=== PATIENT | female | born 1960 | race Caucasian/White ===

== ENCOUNTER 2017-04-07 19:58 | Emergency (ER) | payer MEDICARE, OTHER ==
[~2017-04-07] VITALS: Ht 154.9 cm; Wt 65.3 kg
--- OUTSIDE RECORDS SUMMARY | ~2017-04-07 | XMS ---
Demographics + + + | Address | [address] | | | [place] [address] | + + + | Preferred Language | Unknown | + + + | Marital Status | Unknown | + + + | Temple Affiliation | Unknown | + + + | Race | Unknown | + + + | Ethnic Group | Unknown | + + + Author + + + | Author | [facility] | + + + | Organization | [facility] | + + + | Address | [address] | | | [place] [address] | + + + | Phone | | + + + Care Team Providers + + + + | Care Fireman Helper Name | Role | Phone | + + + + Unavailable | Unavailable | + + + + PROBLEMS + + + + + + + + | Type | Condition | ICD9-CM | [id number] | Onset | Condition | SNOMED | | | | Code | Code | Dates | Status | Code | + + + + + + + + | Problem | HTN | | I10 | | Active | 34227868 | | | (hypertens | | | | | | | | ion) | | | | | | + + + + + + + + | Problem | Hypertrigl | | E78.1 | | Active | 050156405 | | | yceridemia | | | | | | + + + + + + + + | Problem | Hyperchole | | E78.0 | | Active | 60214086 | | | sterolemia | | | | | | + + + + + + + + | Problem | Interstiti | N30.10 | | | Active | 262622829 | | | al | | | | | | | | cystitis | | | | | | + + + + + + + + | Problem | ASCVD | I25.10 | | | Active | 48948628 | | | (arteriosc | | | | | | | | lerotic | | | | | | | | cardiovasc | | | | | | | | ular | | | | | | | | disease) | | | | | | + + + + + + + + | Problem | NAFLD | K76.0 | | | Active | 561350545 | | | (nonalcoho | | | | | | | | lic fatty | | | | | | | | liver | | | | | | | | disease) | | | | | | + + + + + + + + | Problem | Metabolic | | E88.81 | | Active | 909839693 | | | syndrome | | | | | | + + + + + + + + | Problem | Herpes | B00.9 | | | Active | 07799082 | | | simplex | | | | | | + + + + + + + + | Problem | Depression | | F32.9 | | Active | 906367233 | + + + + + + + + | Assessment | Neuropathi | M79.2 | | 15 November, | Active | 307090355 | | | c pain | | | 2017 | | | + + + + + + + + | Problem | Allergic | 477.8 | | | Active | 07911763 | | | rhinitis | | | | | | | | due to | | | | | | | | allergen | | | | | | + + + + + + + + | Problem | Bronchitis | 490 | | | Active | 88312105 | | | NOS | | | | | | + + + + + + + + | Assessment | Shingles | B02.9 | | 15 November, | Active | 3705811 | | | | | | 2016 | | | + + + + + + + + | Problem | Dyslipidem | E78.5 | | | Active | 036779604 | | | ia | | | | | | + + + + + + + + | Problem | Adverse | T88.7XXA | | | Active | 78874500 | | | drug | | | | | | | | reaction | | | | | | + + + + + + + + | Problem | CVA | I63.9 | | | Active | 418873033 | | | (cerebral | | | | | | | | vascular | | | | | | | | accident) | | | | | | + + + + + + + + ALLERGIES + + + + +--------+ | Substance | Reaction | Event Type | Date | Status | + + + + +--------+ | Azithromycin | Unknown | Drug Allergy | November, | Active | + + + + +--------+ | Penicillin | Unknown | Drug Allergy | November, | Active | + + + + +--------+ | Amitriptyline | Unknown | Drug Allergy | November, | Active | | HCl | | | | | + + + + +--------+ | Hydrocodone-Carlos | Unknown | Drug Allergy | November, | Active | | taminophen | | | | | + + + + +--------+ | Tramadol HCl | Unknown | Drug Allergy | November, | Active | + + + + +--------+ | Sulfa | Unknown | Drug Allergy | November, | Active | + + + + +--------+ | Codeine | Unknown | Drug Allergy | November, | Active | + + + + +--------+ | Amoxicillin | Unknown | Drug Allergy | November, | Active | + + + + +--------+ | Wellbutrin | Hallucinations | Drug Allergy | November, | Active | + + + + +--------+ | Percocet | Unknown | Drug Allergy | November, | Active | + + + + +--------+ | Paxil | Unknown | Drug Allergy | November, | Active | + + + + +--------+ | Morphine | Unknown | Drug Allergy | November, | Active | | Sulfate | | | | | + + + + +--------+ | Excedrin PM | Unknown | Drug Allergy | November, | Active | + + + + +--------+ | Ethezyme 650 | Unknown | Drug Allergy | November, | Active | + + + + +--------+ | Demerol | Unknown | Drug Allergy | November, | Active | + + + + +--------+ | Darvon | Unknown | Drug Allergy | November, | Active | + + + + +--------+ | Darvocet-N 100 | Unknown | Drug Allergy | November, | Active | + + + + +--------+ | Cymbalta | hives, tongue | Drug Allergy | November, | Active | | | swells | | | | + + + + +--------+ SOCIAL HISTORY No smoking Hx information available PLAN OF CARE VITAL SIGNS + + + + | Height | 60 in | 2016-11-15 | + + + + | Weight | 148.2 lbs | 2016-11-15 | + + + + | BMI | 28.94 kg/m2 | 2016-11-15 | + + + + | Temperature | 97.8 degrees Fahrenheit | 2016-11-15 | + + + + | Heart Rate | 79 /min | 2016-11-15 | + + + + | Blood pressure systolic | 128 mm Hg | 2016-11-15 | + + + + | Blood pressure diastolic | 74 mm Hg | 2016-11-15 | + + + + MEDICATIONS + + + + + + + +--------+ | Medicati | Instruct | Dosage | Frequenc | Start | End Date | Duration | Status | | on | ions | | y | Date | | | | + + + + + + + +--------+ | Sertrali | Orally | 1 tablet | 24h | Jun, | | 30 | Active | | ne HCl | Once a | | | 2016 | | day(s) | | | 25 MG | day | | | | | | | + + + + + + + +--------+ | Omeprazo | Orally | 1 | 24h | | | | Active | | le 20 MG | Once a | capsule | | | | | | | | day | | | | | | | + + + + + + + +--------+ | Gabapent | Orally | 1 | 12h | 07 May, | | 10 | Active | | in 300 | BID | capsule | | 2017 | | day(s) | | | MG | | | | | | | | + + + + + + + +--------+ | Fenofibr | Orally | 1 tablet | 24h | | | | Active | | ate 54 | Once a | with a | | | | | | | MG | day | meal | | | | | | + + + + + + + +--------+ | Laxative | | | | | | | Active | | /Stool | | | | | | | | | Softener | | | | | | | | | 30-100 | | | | | | | | | MG | | | | | | | | + + + + + + + +--------+ | Multi | | | | | | | Active | | For Her | | | | | | | | | 50+ | | | | | | | | + + + + + + + +--------+ | Crestor | Orally | 1 tablet | 24h | Aug, | | 90 days | Active | | 20 mg | Once a | | | 2015 | | | | | | day | | | | | | | + + + + + + + +--------+ RESULTS No Results PROCEDURES + + + + + | Procedure | Date Ordered | Related Diagnosis | Body Site | + + + + + | Office Visit, Est | November 15, 2016 | | | | Pt., Level 3 | | | | + + + + + | [facility] MED/CURRENT | November 15, 2016 | | | | MED MERGE | | | | + + + + + | DOC MEDS VERIFIED | November 15, 2016 | | | | W/PT OR RE | | | | + + + + + IMMUNIZATIONS No Known Immunizations"
--- OUTSIDE RECORDS SUMMARY | ~2017-04-07 | XMS ---
Demographics + + + | Address | [address] | | | [place] [address] | + + + | Preferred Language | Unknown | + + + | Marital Status | Unknown | + + + | Voodoo Affiliation | Unknown | + + + | Race | Unknown | + + + | Ethnic Group | Unknown | + + + Author + + + | Author | [facility] | + + + | Organization | [facility] | + + + | Address | [address] | | | [place] [address] | + + + | Phone | | + + + Care Team Providers + + + + | Care Purchasing Coordinator Name | Role | Phone | + + + + Unavailable | Unavailable | + + + + PROBLEMS +---------+ + + +--------+ + + | Type | Condition | ICD9-CM | [id number] | Onset | Condition | SNOMED | | | | Code | Code | Dates | Status | Code | +---------+ + + +--------+ + + | Problem | Hypertrigl | | E78.1 | | Active | 796076602 | | | yceridemia | | | | | | +---------+ + + +--------+ + + | Problem | NAFLD | K76.0 | | | Active | 783347479 | | | (nonalcoho | | | | | | | | lic fatty | | | | | | | | liver | | | | | | | | disease) | | | | | | +---------+ + + +--------+ + + | Problem | Metabolic | | E88.81 | | Active | 945684064 | | | syndrome | | | | | | +---------+ + + +--------+ + + | Problem | Shingles | B02.9 | | | Active | 2400560 | +---------+ + + +--------+ + + | Problem | Shingles | B02.23 | | | Active | 57258507 | | | (herpes | | | | | | | | zoster) | | | | | | | | polyneurop | | | | | | | | athy | | | | | | +---------+ + + +--------+ + + | Problem | Herpes | B00.9 | | | Active | 39053593 | | | simplex | | | | | | +---------+ + + +--------+ + + | Problem | Depression | | F32.9 | | Active | 024955194 | +---------+ + + +--------+ + + | Problem | Interstiti | N30.10 | | | Active | 486770343 | | | al | | | | | | | | cystitis | | | | | | +---------+ + + +--------+ + + | Problem | ASCVD | I25.10 | | | Active | 56051611 | | | (arteriosc | | | | | | | | lerotic | | | | | | | | cardiovasc | | | | | | | | ular | | | | | | | | disease) | | | | | | +---------+ + + +--------+ + + | Problem | Adverse | T88.7XXA | | | Active | 99750692 | | | drug | | | | | | | | reaction | | | | | | +---------+ + + +--------+ + + | Problem | Dyslipidem | E78.5 | | | Active | 318962371 | | | ia | | | | | | +---------+ + + +--------+ + + | Problem | CVA | I63.9 | | | Active | 158597149 | | | (cerebral | | | | | | | | vascular | | | | | | | | accident) | | | | | | +---------+ + + +--------+ + + | Problem | Allergic | 477.8 | | | Active | 23075431 | | | rhinitis | | | | | | | | due to | | | | | | | | allergen | | | | | | +---------+ + + +--------+ + + | Problem | HTN | | I10 | | Active | 44936227 | | | (hypertens | | | | | | | | ion) | | | | | | +---------+ + + +--------+ + + | Problem | Bronchitis | 490 | | | Active | 67173825 | | | NOS | | | | | | +---------+ + + +--------+ + + | Problem | Hyperchole | | E78.0 | | Active | 31701067 | | | sterolemia | | | | | | +---------+ + + +--------+ + + ALLERGIES + + + + [...] smoking Hx information available PLAN OF CARE + +---------+ | Activity | Details | + +---------+ +---+ | | +---+ + + + | Follow Up | 2 Months Reason:null | + + + VITAL SIGNS + + + + | Height | 60 in | 2016-12-01 | + + + + | Weight | 146 lbs | 2016-12-01 | + + + + | BMI | 28.51 kg/m2 | 2016-12-01 | + + + + | Temperature | 98.0 degrees Fahrenheit | 2016-12-01 | + + + + | Heart Rate | 77 /min | 2016-12-01 | + + + + | Blood pressure systolic | 107 mm Hg | 2016-12-01 | + + + + | Blood pressure diastolic | 62 mm Hg | 2016-12-01 | + + + + MEDICATIONS + + + + + + + +--------+ | Medicati | Instruct | Dosage | Frequenc | Start | End Date | Duration | Status | | on | ions | | y | Date | | | | + + + + + + + +--------+ | Ibuprofe | Orally | 1 tablet | | 01 December, | Dec, | 30 | Active | | n 800 MG | one time | | | 2016 | 2016 | day(s) | | | | a day | | | | | | | + + + + + + + +--------+ | Sertrali | Orally | 1 tablet | 24h | Jun, | | 90 days | Active | | ne HCl | Once a | | | 2015 | | | | | 25 MG | day | | | | | | | + + + + + + + +--------+ | Gabapent | Orally | 1 | 12h | 15 November, | | 10 | Active | | in 300 | BID | capsule | | 2016 | | day(s) | | | MG [...] 1 tablet | 24h | | | 90 days | Active | | ate 54 | [...] + + | Office Visit, Est | December 01, 2016 | | | | Pt., Level 4 | | | | + + + + + | [facility] MED/CURRENT | December 01, 2016 | | | | MED MERGE | | | | + + + + + IMMUNIZATIONS No Known Immunizations"
--- OUTSIDE RECORDS SUMMARY | ~2017-04-07 | XMS ---
Demographics + + + | Address | [address] | | | [place] [address] | + + + | Preferred Language | Unknown | + + + | Marital Status | Unknown | + + + | Baptism Affiliation | Unknown | + + + | Race | Unknown | + + + | Ethnic Group | Unknown | + + + Author + + + | Author | [facility] | + + + | Organization | [facility] | + + + | Address | [address] | | | [place] [address] | + + + | Phone | | + + + Care Team Providers + + + + | Care Vacuum Drum Drier Operator Name | Role | Phone | + + + + Unavailable | Unavailable | + + + + PROBLEMS +---------+ + + +--------+ + + | Type | Condition | ICD9-CM | [id number] | Onset | Condition | SNOMED | | | | Code | Code | Dates | Status | Code | +---------+ + + +--------+ + + | Problem | Hypertrigl | | E78.1 | | Active | 995548166 | | | yceridemia | | | | | | +---------+ + + +--------+ + + | Problem | NAFLD | K76.0 | | | Active | 789160436 | | | (nonalcoho | | | | | | | | lic fatty | | | | | | | | liver | | | | | | | | disease) | | | | | | +---------+ + + +--------+ + + | Problem | Metabolic | | E88.81 | | Active | 973682212 | | | syndrome | | | | | | +---------+ + + +--------+ + + | Problem | Shingles | B02.9 | | | Active | 8067715 | +---------+ + + +--------+ + + | Problem | Shingles | B02.23 | | | Active | 70824658 | | | (herpes | | | | | | | | zoster) | | | | | | | | polyneurop | | | | | | | | athy | | | | | | +---------+ + + +--------+ + + | Problem | Herpes | B00.9 | | | Active | 15690008 | | | simplex | | | | | | +---------+ + + +--------+ + + | Problem | Depression | | F32.9 | | Active | 75058217 | +---------+ + + +--------+ + + | Problem | Interstiti | N30.10 | | | Active | 043934399 | | | al | | | | | | | | cystitis | | | | | | +---------+ + + +--------+ + + | Problem | ASCVD | I25.10 | | | Active | 38089768 | | | (arteriosc | | | | | | | | lerotic | | | | | | | | cardiovasc | | | | | | | | ular | | | | | | | | disease) | | | | | | +---------+ + + +--------+ + + | Problem | Elevated | R73.9 | | | Active | 75166494 | | | blood | | | | | | | | sugar | | | | | | +---------+ + + +--------+ + + | Problem | Adverse | T88.7XXA | | | Active | 75868427 | | | drug | | | | | | | | reaction | | | | | | +---------+ + + +--------+ + + | Problem | Dyslipidem | E78.5 | | | Active | 122753746 | | | ia | | | | | | +---------+ + + +--------+ + + | Problem | CVA | I63.9 | | | Active | 252904629 | | | (cerebral | | | | | | | | vascular | | | | | | | | accident) | | | | | | +---------+ + + +--------+ + + | Problem | Allergic | 477.8 | | | Active | 76352614 | | | rhinitis | | | | | | | | due to | | | | | | | | allergen | | | | | | +---------+ + + +--------+ + + | Problem | HTN | | I10 | | Active | 17110505 | | | (hypertens | | | | | | | | ion) | | | | | | +---------+ + + +--------+ + + | Problem | Bronchitis | 490 | | | Active | 18641941 | | | NOS | | | | | | +---------+ + + +--------+ + + | Problem | Hyperchole | | E78.0 | | Active | 24632184 | | | sterolemia | | | | | | +---------+ + + +--------+ + + ALLERGIES No Information SOCIAL HISTORY Never Assessed PLAN OF CARE VITAL SIGNS MEDICATIONS Unknown Medications RESULTS No Results PROCEDURES No Known procedures IMMUNIZATIONS No Known Immunizations MEDICAL (GENERAL) HISTORY + + +---------+ | Type | Description | Date | + + +---------+ | Medical History | stroke - 2002; (thrombotic, | | | | treated with Coumadin for | | | | 4 months, saw Neurologist | | | | at the time. Slight | | | | numbness and weakness right | | | | side (face, arm, leg) | | + + +---------+ | Medical History | high cholesterol | | + + +---------+ | Medical History | fatty liver (Non-alcoholic) | | + + +---------+ | Medical History | chronic depression | | + + +---------+ | Medical History | fibromyalgia | | + + +---------+ | Medical History | reflux | | + + +---------+ | Medical History | headaches | | + + +---------+ | Medical History | seasonal allergies | | + + +---------+ | Medical History | transfusion () - | | | | 1982 | | + + +---------+ | Surgical History | gall bladder | 2000 | + + +---------+ | Surgical History | appendectomy | 1992 | + + +---------+ | Surgical History | tubal ligation | 1984 | + + +---------+ | Surgical History | tonsillectomy | 1964 | + + +---------+ | Surgical History | colonoscopy | 2014 | + + +---------+ | Surgical History | Right Salpingectomy | 07/2015 | | | (Hydrosalpinx) | | + + +---------+ | Surgical History | angiogram | 12/2015 | + + +---------+ | Surgical History | Left falopian tube removed, | 05/2016 | | | palops | | + + +---------+ | Hospitalization History | see above | | + + +---------+ | Hospitalization History | heart, angiogram | | + + +---------+"
--- OUTSIDE RECORDS SUMMARY | ~2017-04-07 | XMS ---
Demographics + + + | Address | [address] | | | [place] [address] | + + + | Preferred Language | Unknown | + + + | Marital Status | Unknown | + + + | Oriental Orthodox Affiliation | Unknown | + + + | Race | Unknown | + + + | Ethnic Group | Unknown | + + + Author + + + | Author | [facility] | + + + | Organization | [facility] | + + + | Address | [address] | | | [place] [address] | + + + | Phone | | + + + Care Team Providers + + + + | Care Superintendent Drilling Name | Role | Phone | + + + + Unavailable | Unavailable | + + + + PROBLEMS +---------+ + + +--------+ + + | Type | Condition | ICD9-CM | [id number] | Onset | Condition | SNOMED | | | | Code | Code | Dates | Status | Code | +---------+ + + +--------+ + + | Problem | Hypertrigl | | E78.1 | | Active | 540738009 | | | yceridemia | | | | | | +---------+ + + +--------+ + + | Problem | NAFLD | K76.0 | | | Active | 590193602 | | | (nonalcoho | | | | | | | | lic fatty | | | | | | | | liver | | | | | | | | disease) | | | | | | +---------+ + + +--------+ + + | Problem | Metabolic | | E88.81 | | Active | 969695806 | | | syndrome | | | | | | +---------+ + + +--------+ + + | Problem | Shingles | B02.9 | | | Active | 9676697 | +---------+ + + +--------+ + + | Problem | Shingles | B02.23 | | | Active | 62064292 | | | (herpes | | | | | | | | zoster) | | | | | | | | polyneurop | | | | | | | | athy | | | | | | +---------+ + + +--------+ + + | Problem | Herpes | B00.9 | | | Active | 77873851 | | | simplex | | | | | | +---------+ + + +--------+ + + | Problem | Depression | | F32.9 | | Active | 704025945 | +---------+ + + +--------+ + + | Problem | Interstiti | N30.10 | | | Active | 960434262 | | | al | | | | | | | | cystitis | | | | | | +---------+ + + +--------+ + + | Problem | ASCVD | I25.10 | | | Active | 35942278 | | | (arteriosc | | | | | | | | lerotic | | | | | | | | cardiovasc | | | | | | | | ular | | | | | | | | disease) | | | | | | +---------+ + + +--------+ + + | Problem | Adverse | T88.7XXA | | | Active | 98812888 | | | drug | | | | | | | | reaction | | | | | | +---------+ + + +--------+ + + | Problem | Dyslipidem | E78.5 | | | Active | 190428756 | | | ia | | | | | | +---------+ + + +--------+ + + | Problem | CVA | I63.9 | | | Active | 627112478 | | | (cerebral | | | | | | | | vascular | | | | | | | | accident) | | | | | | +---------+ + + +--------+ + + | Problem | Allergic | 477.8 | | | Active | 39958079 | | | rhinitis | | | | | | | | due to | | | | | | | | allergen | | | | | | +---------+ + + +--------+ + + | Problem | HTN | | I10 | | Active | 82582614 | | | (hypertens | | | | | | | | ion) | | | | | | +---------+ + + +--------+ + + | Problem | Bronchitis | 490 | | | Active | 35949743 | | | NOS | | | | | | +---------+ + + +--------+ + + | Problem | Hyperchole | | E78.0 | | Active | 22237160 | | | sterolemia | | | | | | +---------+ + + +--------+ + + ALLERGIES Unknown Allergies SOCIAL HISTORY No smoking Hx information available PLAN OF CARE VITAL SIGNS MEDICATIONS Unknown Medications RESULTS No Results PROCEDURES No Known procedures IMMUNIZATIONS No Known Immunizations"
--- OUTSIDE RECORDS SUMMARY | ~2017-04-07 | XMS ---
Demographics + + + | Address | [address] | | | [place] [address] | + + + | Preferred Language | Unknown | + + + | Marital Status | Unknown | + + + | Baptist Affiliation | Unknown | + + + | Race | Unknown | + + + | Ethnic Group | Unknown | + + + Author + + + | Author | [facility] | + + + | Organization | [facility] | + + + | Address | [address] | | | [place] [address] | + + + | Phone | | + + + Care Team Providers + + + + | Care Aircraft Electrical Systems Specialist Name | Role | Phone | + + + + Unavailable | Unavailable | + + + + PROBLEMS +---------+ + + +--------+ + + | Type | Condition | ICD9-CM | [id number] | Onset | Condition | SNOMED | | | | Code | Code | Dates | Status | Code | +---------+ + + +--------+ + + | Problem | Hypertrigl | | E78.1 | | Active | [id number] | | | yceridemia | | | | | | +---------+ + + +--------+ + + | Problem | NAFLD | K76.0 | | | Active | 763968428 | | | (nonalcoho | | | | | | | | lic fatty | | | | | | | | liver | | | | | | | | disease) | | | | | | +---------+ + + +--------+ + + | Problem | Metabolic | | E88.81 | | Active | 122594723 | | | syndrome | | | | | | +---------+ + + +--------+ + + | Problem | Shingles | B02.9 | | | Active | 9490612 | +---------+ + + +--------+ + + | Problem | Shingles | B02.23 | | | Active | 02838706 | | | (herpes | | | | | | | | zoster) | | | | | | | | polyneurop | | | | | | | | athy | | | | | | +---------+ + + +--------+ + + | Problem | Herpes | B00.9 | | | Active | 81419439 | | | simplex | | | | | | +---------+ + + +--------+ + + | Problem | Depression | | F32.9 | | Active | 228430254 | +---------+ + + +--------+ + + | Problem | Interstiti | N30.10 | | | Active | 295008692 | | | al | | | | | | | | cystitis | | | | | | +---------+ + + +--------+ + + | Problem | ASCVD | I25.10 | | | Active | 95673342 | | | (arteriosc | | | | | | | | lerotic | | | | | | | | cardiovasc | | | | | | | | ular | | | | | | | | disease) | | | | | | +---------+ + + +--------+ + + | Problem | Elevated | R73.9 | | | Active | 79494455 | | | blood | | | | | | | | sugar | | | | | | +---------+ + + +--------+ + + | Problem | Adverse | T88.7XXA | | | Active | 54286852 | | | drug | | | | | | | | reaction | | | | | | +---------+ + + +--------+ + + | Problem | Dyslipidem | E78.5 | | | Active | 164080495 | | | ia | | | | | | +---------+ + + +--------+ + + | Problem | CVA | I63.9 | | | Active | 789627801 | | | (cerebral | | | | | | | | vascular | | | | | | | | accident) | | | | | | +---------+ + + +--------+ + + | Problem | Allergic | 477.8 | | | Active | 75159912 | | | rhinitis | | | | | | | | due to | | | | | | | | allergen | | | | | | +---------+ + + +--------+ + + | Problem | HTN | | I10 | | Active | 84783773 | | | (hypertens | | | | | | | | ion) | | | | | | +---------+ + + +--------+ + + | Problem | Bronchitis | 490 | | | Active | 82120743 | | | NOS | | | | | | +---------+ + + +--------+ + + | Problem | Hyperchole | | E78.0 | | Active | 74095752 | | | sterolemia | | | | | | +---------+ + + +--------+ + + ALLERGIES + + + + +--------+ | Substance | Reaction | Event Type | Date | Status | + + + + +--------+ | Azithromycin | Unknown | Drug Allergy | Jan, | Active | + + + + +--------+ | Penicillin | Unknown | Drug Allergy | Jan, | Active | + + + + +--------+ | Amitriptyline | Unknown | Drug Allergy | Jan, | Active | | HCl | | | | | + + + + +--------+ | Hydrocodone-Carlos | Unknown | Drug Allergy | Jan, | Active | | taminophen | | | | | + + + + +--------+ | Tramadol HCl | Unknown | Drug Allergy | Jan, | Active | + + + + +--------+ | Sulfa | Unknown | Drug Allergy | Jan, | Active | + + + + +--------+ | Codeine | Unknown | Drug Allergy | Jan, | Active | + + + + +--------+ | Amoxicillin | Unknown | Drug Allergy | Jan, | Active | + + + + +--------+ | Wellbutrin | Hallucinations | Drug Allergy | Jan, | Active | + + + + +--------+ | Percocet | Unknown | Drug Allergy | Jan, | Active | + + + + +--------+ | Paxil | Unknown | Drug Allergy | Jan, | Active | + + + + +--------+ | Morphine | Unknown | Drug Allergy | Jan, | Active | | Sulfate | | | | | + + + + +--------+ | Excedrin PM | Unknown | Drug Allergy | Jan, | Active | + + + + +--------+ | Ethalexyme 650 | Unknown | Drug Allergy | Jan, | Active | + + + + +--------+ | Demerol | Unknown | Drug Allergy | Jan, | Active | + + + + +--------+ | Darvon | Unknown | Drug Allergy | Jan, | Active | + + + + +--------+ | Darvocet-N 100 | Unknown | Drug Allergy | Jan, | Active | + + + + +--------+ | Cymbalta | hives, tongue | Drug Allergy | Jan, | Active | | | swells | | | | + + + + +--------+ SOCIAL HISTORY No smoking Hx information available PLAN OF CARE + +---------+ | Activity | Details | + +---------+ +---+ | | +---+ + + + | Follow Up | 3 Months Reason:null | + + + VITAL SIGNS + + + + | Height | 60 in | 2017-02-01 | + + + + | Weight | 151.3 lbs | 2017-02-01 | + + + + | BMI | 29.55 kg/m2 | 2017-02-01 | + + + + | Temperature | 98.2 degrees Fahrenheit | 2017-02-01 | + + + + | Heart Rate | 83 /min | 2017-02-01 | + + + + | Blood pressure systolic | 111 mm Hg | 2017-02-01 | + + + + | Blood pressure diastolic | 69 mm Hg | 2017-02-01 | + + + + MEDICATIONS + [...] a | | | 2016 | | | | | 25 MG | day | | | | | | | + + + + + + + +--------+ | Zoloft | Orally | 1 tablet | 24h | | | | Active | | 25 MG | Once a | | | | | | | | | day | | | | | | | + + + + + + + +--------+ | Gabapent | Orally | 1 | 12h | 07 November, | | 10 | Active | [...] | | | | Active | | 20 MG | Once a | | | | | | | | | day | | | | | | | + + + + + + + +--------+ | Ibuprofe | Orally | 1 tablet | 12h | | | | Active | | n 800 MG | Two | | | | | | | | | times a | | | | | | | | | day | | | | | | | + + + + + + + +--------+ | Toviaz 4 | Orally | 1 tablet | 24h | | | | Active | | MG | Once a | | | | | | | | | day | | | | | | | + + + + + + + +--------+ RESULTS + +--------+ + + | Name | Result | Date | Reference Range | + +--------+ + + | TSH | | 2017-02-01 | | + +--------+ + + | TSH | | | | + +--------+ + + | Lipid Panel | | 2017-02-01 | | + +--------+ + + | Cholesterol, Total | | | | + +--------+ + + | Triglycerides | | | | + +--------+ + + | HDL Cholesterol | | | | + +--------+ + + | VLDL Cholesterol | | | | | Dillon | | | | + +--------+ + + | LDL Cholesterol | | | | | Calc | | | | + +--------+ + + | Basic Metabolic | | 2017-02-01 | | | Panel (8) | | | | + +--------+ + + | Calcium, Serum | | | | + +--------+ + + | Glucose, Serum | | | | + +--------+ + + | BUN | | | | + +--------+ + + | Potassium, Serum | | | | + +--------+ + + | Sodium, Serum | | | | + +--------+ + + | Chloride, Serum | | | | + +--------+ + + | Creatinine, Serum | | | | + +--------+ + + | Carbon Dioxide, | | | | | Total | | | | + +--------+ + + | BUN/Creatinine | | | | | Ratio | | | | + +--------+ + + | CBC with | | 2017-02-01 | | | Differential Count | | | | + +--------+ + + PROCEDURES + + + + + | Procedure | Date Ordered | Related Diagnosis | Body Site | + + + + + | Office Visit, Est | February 01, 2017 | | | | Pt., Level 4 | | | | + + + + + | [facility] MED/CURRENT | February 01, 2017 | | | | MED MERGE | | | | + + + + + IMMUNIZATIONS No Known Immunizations"
--- OUTSIDE RECORDS SUMMARY | ~2017-04-07 | XMS ---
Demographics + + + | Address | [address] | | | [place] [address] | + + + | Preferred Language | Unknown | + + + | Marital Status | Unknown | + + + | Caodaism Affiliation | Unknown | + + + | Race | Unknown | + + + | Ethnic Group | Unknown | + + + Author + + + | Author | [facility] | + + + | Organization | [facility] | + + + | Address | [address] | | | [place] [address] | + + + | Phone | | + + + Care Team Providers + + + + | Care Benefits Counselor Name | Role | Phone | + + + + Unavailable | Unavailable | + + + + PROBLEMS +---------+ + + +--------+ + + | Type | Condition | ICD9-CM | [id number] | Onset | Condition | SNOMED | | | | Code | Code | Dates | Status | Code | +---------+ + + +--------+ + + | Problem | Hypertrigl | | E78.1 | | Active | [id number] | | | yceridemia | | | | | | +---------+ + + +--------+ + + | Problem | NAFLD | K76.0 | | | Active | 728572614 | | | (nonalcoho | | | | | | | | lic fatty | | | | | | | | liver | | | | | | | | disease) | | | | | | +---------+ + + +--------+ + + | Problem | Metabolic | | E88.81 | | Active | 833460392 | | | syndrome | | | | | | +---------+ + + +--------+ + + | Problem | Shingles | B02.9 | | | Active | 8471988 | +---------+ + + +--------+ + + | Problem | Shingles | B02.23 | | | Active | 12675095 | | | (herpes | | | | | | | | zoster) | | | | | | | | polyneurop | | | | | | | | athy | | | | | | +---------+ + + +--------+ + + | Problem | Herpes | B00.9 | | | Active | 38480005 | | | simplex | | | | | | +---------+ + + +--------+ + + | Problem | Depression | | F32.9 | | Active | 008556909 | +---------+ + + +--------+ + + | Problem | Interstiti | N30.10 | | | Active | 953942494 | | | al | | | | | | | | cystitis | | | | | | +---------+ + + +--------+ + + | Problem | ASCVD | I25.10 | | | Active | 33993645 | | | (arteriosc | | | | | | | | lerotic | | | | | | | | cardiovasc | | | | | | | | ular | | | | | | | | disease) | | | | | | +---------+ + + +--------+ + + | Problem | Adverse | T88.7XXA | | | Active | 29287039 | | | drug | | | | | | | | reaction | | | | | | +---------+ + + +--------+ + + | Problem | Dyslipidem | E78.5 | | | Active | 120747758 | | | ia | | | | | | +---------+ + + +--------+ + + | Problem | CVA | I63.9 | | | Active | 405899953 | | | (cerebral | | | | | | | | vascular | | | | | | | | accident) | | | | | | +---------+ + + +--------+ + + | Problem | Allergic | 477.8 | | | Active | 01355196 | | | rhinitis | | | | | | | | due to | | | | | | | | allergen | | | | | | +---------+ + + +--------+ + + | Problem | HTN | | I10 | | Active | 38986478 | | | (hypertens | | | | | | | | ion) | | | | | | +---------+ + + +--------+ + + | Problem | Bronchitis | 490 | | | Active | 55959289 | | | NOS | | | | | | +---------+ + + +--------+ + + | Problem | Hyperchole | | E78.0 | | Active | 63269494 | | | sterolemia | | | [...] 3 Months Reason:null | + + + | Pending Test | Urinalysis, Dip (IH) | + + + VITAL SIGNS + + + + | Height | 60 in | 2017-01-20 | + + + + | Weight | 148.2 lbs | 2017-01-20 | + + + + | BMI | 28.94 kg/m2 | 2017-01-20 | + + + + | Temperature | 98.5 degrees Fahrenheit | 2017-01-20 | + + + + | Heart Rate | 72 /min | 2017-01-20 | + + + + | Blood pressure systolic | 120 mm Hg | 2017-01-20 | + + + + | Blood pressure diastolic | 70 mm Hg | 2017-01-20 | + + + + MEDICATIONS + + + + + + + +--------+ | Medicati | Instruct | Dosage | Frequenc | Start | End Date | Duration | Status | | on | ions | | y | Date | | | | + + + + + + + +--------+ | Sertrali | Orally | 1 tablet | 24h | 06 Dec, | | 90 days | Active | [...] + + + + + +--------+ | Pyridium | po every | 1 | 8h | 12 Sathish, | 17 Sathish, | 5 days | Active | | 200 MG | 8 hours | | | 2017 | 2017 | | | + + [...] | + + + + + | LAB URINALYSIS (DIP | January 20, 2017 | | | | STICK ONLY | | | | + + + + + | Office Visit, Est | January 20, 2017 | | | | Pt., Level 3 | | | | + + + + + IMMUNIZATIONS No Known Immunizations"
--- OUTSIDE RECORDS SUMMARY | ~2017-04-07 | XMS ---
Demographics + + + | Address | [address] | | | [place] [address] | + + + | Preferred Language | Unknown | + + + | Marital Status | Unknown | + + + | Yazidism Affiliation | Unknown | + + + | Race | Unknown | + + + | Ethnic Group | Unknown | + + + Author + + + | Author | [facility] | + + + | Organization | [facility] | + + + | Address | [address] | | | [place] [address] | + + + | Phone | | + + + Care Team Providers + + + + | Care Acute Care Assistant Name | Role | Phone | + + + + Unavailable | Unavailable | + + + + PROBLEMS +---------+ + + +--------+ + + | Type | Condition | ICD9-CM | [id number] | Onset | Condition | SNOMED | | | | Code | Code | Dates | Status | Code | +---------+ + + +--------+ + + | Problem | Hypertrigl | | E78.1 | | Active | 891722823 | | | yceridemia | | | | | | +---------+ + + +--------+ + + | Problem | NAFLD | K76.0 | | | Active | 679021607 | | | (nonalcoho | | | | | | | | lic fatty | | | | | | | | liver | | | | | | | | disease) | | | | | | +---------+ + + +--------+ + + | Problem | Metabolic | | E88.81 | | Active | 525956052 | | | syndrome | | | | | | +---------+ + + +--------+ + + | Problem | Shingles | B02.9 | | | Active | 9577428 | +---------+ + + +--------+ + + | Problem | Shingles | B02.23 | | | Active | 02179064 | | | (herpes | | | | | | | | zoster) | | | | | | | | polyneurop | | | | | | | | athy | | | | | | +---------+ + + +--------+ + + | Problem | Herpes | B00.9 | | | Active | 66264414 | | | simplex | | | | | | +---------+ + + +--------+ + + | Problem | Depression | | F32.9 | | Active | 193377067 | +---------+ + + +--------+ + + | Problem | Interstiti | N30.10 | | | Active | 042061801 | | | al | | | | | | | | cystitis | | | | | | +---------+ + + +--------+ + + | Problem | ASCVD | I25.10 | | | Active | 89026575 | | | (arteriosc | | | | | | | | lerotic | | | | | | | | cardiovasc | | | | | | | | ular | | | | | | | | disease) | | | | | | +---------+ + + +--------+ + + | Problem | Elevated | R73.9 | | | Active | 97800006 | | | blood | | | | | | | | sugar | | | | | | +---------+ + + +--------+ + + | Problem | Adverse | T88.7XXA | | | Active | 07789506 | | | drug | | | | | | | | reaction | | | | | | +---------+ + + +--------+ + + | Problem | Dyslipidem | E78.5 | | | Active | 938801635 | | | ia | | | | | | +---------+ + + +--------+ + + | Problem | CVA | I63.9 | | | Active | 351447746 | | | (cerebral | | | | | | | | vascular | | | | | | | | accident) | | | | | | +---------+ + + +--------+ + + | Problem | Allergic | 477.8 | | | Active | 21593842 | | | rhinitis | | | | | | | | due to | | | | | | | | allergen | | | | | | +---------+ + + +--------+ + + | Problem | HTN | | I10 | | Active | 81378917 | | | (hypertens | | | | | | | | ion) | | | | | | +---------+ + + +--------+ + + | Problem | Bronchitis | 490 | | | Active | 45033166 | | | NOS | | | | | | +---------+ + + +--------+ + + | Problem | Hyperchole | | E78.0 | | Active | 53864584 | | | sterolemia | | | | | | +---------+ + + +--------+ + + ALLERGIES Unknown Allergies SOCIAL HISTORY No smoking Hx information available PLAN OF CARE VITAL SIGNS MEDICATIONS + + + + + + [...] | 12h | 07 November, | | 60 days | Active | | in 300 | BID | capsule | | 2016 | | | | | MG | | | | | | | | + + + + + + + +--------+ RESULTS No Results PROCEDURES No Known procedures IMMUNIZATIONS No Known Immunizations"
[~2017-04-07 19:58] MED LIST: ASPIRIN EC81 MG PO; ASPIRIN81 MG PO; B-12 1,000 MCG1 EACH SL; BACTRIM DS TAB1 EACH PO; CALCIUM600 MG PO; CEPHALEXIN500 MG PO; CRESTOR10 MG PO; FOLGARD TABLET1 EAC1 PO; GABAPENTIN100 MG; GABAPENTIN100 MG PO; GABAPENTIN300 MG PO; HIGH POTENCY C600 MG PO; HYDROXYZINE HCL50 MG PO; IBUPROFEN600 MG PO; IBUPROFEN800 MG PO; INDOMETHACIN50 MG PO; IRON18 MG; IRON325 M1 PO; ISOSORBIDE MONO30 MG PO; KETOROLAC TROME10 MG PO; LEVOFLOXACIN500 MG PO; METAMUCIL FIBE1 EACH PO; METRONIDAZOLE500 MG PO; MOTRIN IB200 MG PO; MULTIVITAMINS1 EAC7 PO; NAPROSYN500 MG PO; NEOMYCIN-POLYMY10 M1 OTIC; NITROSTAT0.4 MG SL; OMEPRAZOLE20 MG PO; PROPRANOLOL HCL20 MG PO; SENNA LAX8.6 MG PO; SERTRALINE HCL25 MG PO; SIMVASTATIN20 MG PO; SYSTANE 0.3-0.415 ML OPTH; TESSALON PERLE100 MG PO; TRAMADOL HCL50 MG PO; VITAMIN B12-FO1 EACH PO; VITAMIN D5000 UNIT PO; ZANTAC150 MG PO; ZOLOFT50 MG PO
[2017-04-07] MEDS ORDERED: IBUPROFEN600 MG PO (20:27)
[2017-04-07] MEDS ORDERED: CLINDAMYCIN HC150 MG PO (20:27)
[2017-04-28] MEDS ORDERED: FENOFIBRATE54 MG PO (09:29)
[2017-04-28] MEDS ORDERED: PEPCID40 MG PO (09:30)
[2017-04-28] MEDS ORDERED: GABAPENTIN300 MG PO (09:31)
== END 2017-04-07 20:44 | disposition home or self-care (01) ==
LOC: ED 19:58
DX: K02.9 Dental caries, unspecified (principal); Z86.73 Personal history of transient ischemic attack (TIA), and cerebral infarction without residual deficits; Z90.89 Acquired absence of other organs; Z98.51 Tubal ligation status; Z90.49 Acquired absence of other specified parts of digestive tract; Z90.79 Acquired absence of other genital organ(s); Z88.6 Allergy status to analgesic agent; Z88.0 Allergy status to penicillin; Z88.5 Allergy status to narcotic agent; Z88.8 Allergy status to other drugs, medicaments and biological substances; Z91.040 Latex allergy status; Z79.899 Other long term (current) drug therapy
CPT/HCPCS: 99283

== ENCOUNTER 2017-05-10 05:45 | Day surgery (SDC) | payer MEDICARE, OTHER ==
[~2017-05-10] VITALS: Ht 154.9 cm; Wt 64.4 kg
[~2017-05-10 05:45] MED LIST changes: +CLINDAMYCIN HC150 MG PO; +FENOFIBRATE54 MG PO; +PEPCID40 MG PO
--- NOTE | 2017-05-10 06:12 | NUR ---
PT TO ROOM, PRE-SURGICAL WIPES COMPLETE. DENIES C/O OR NEEDS AT THIS TIME. CALL LIGHT IN LAP.
--- NOTE | 2017-05-10 08:13 | NUR ---
05/10/17 0813 Nahomy Blancas 0807 O2 SAT 100%, O2 REMOVED. PT REPORTING THE FEELING "NEEDED TO PEE" AND A BURNING FEELING FROM THAT. PT EDUCATED THAT THIS IS NORMAL.
[2017-05-10] MEDS ORDERED: KETOROLAC TROME10 MG PO (08:50)
--- NOTE | 2017-05-10 08:52 | NUR ---
RETURNED FROM PACU, ALERT AND ORIENTED. DENIES C/O OR NEEDS AT THIS TIME. CALL LIGHT IN LAP
--- NOTE | 2017-05-10 09:41 | NUR ---
STATES HAVING 0/10 PAIN OR NEEDS AT THIS TIME. CALL LIGHT IN LAP. IV DC'D, PT CHRIS WELL. TO GET DRESSED. AWAITING FAMILY.
--- NOTE | 2017-05-10 09:57 | NUR ---
CHRIS AMB TO BATHROOM BY SELF, VOID W/O DIFF. DRESSED BY SELF. GRANDDAUGHTER IN ROOM, VERBAL/WRITTEN DC INSTRUCTIONS GIVEN. PT STATED/SIGNED UNDERSTANDING. LEFT UNIT VIA WC WITH PERSONAL BELONGINGS.
--- NOTE | 2017-05-10 17:10 | OR ---
[facility] [address] [place] [id number] Signed DATE OF OPERATION: 05/10/2017 SURGEON: Anya Chambers MD DATE OF SERVICE: May 10, 2017 PREOPERATIVE DIAGNOSIS: Interstitial cystitis. POSTOPERATIVE DIAGNOSIS: Interstitial cystitis. PROCEDURES: 1. Diagnostic cystoscopy. 2. Hydrodistention. SURGEON: Anya Chambers MD ANESTHESIA: MAC. ESTIMATED BLOOD LOSS: None. COMPLICATIONS: None. SPECIMENS: None. INDICATIONS: Ms. Peguero is a very pleasant 56-year-old female with a longstanding history of interstitial cystitis. She has tried multiple other interventions including oral medications as well as bladder installations, however, her symptoms of suprapubic discomfort and urgency and frequency continued. On her last office visit, the patient requested to undergo cystoscopy with hydrodistention for management of her symptoms. She presents today to undergo the aforementioned elective procedure. Electronically Signed By: ANYA CHAMBERS MD 05/10/17 1710 PATIENT NAME: OLEGARIO PEGUERO OPERATIVE REPORT DATE OF : 62 PHYSICIAN: ANYA CHAMBERS MD REPORT #: [id number] REPORT IS CONFIDENTIAL AND NOT TO BE RELEASED WITHOUT AUTHORIZATION [facility] [address] [place] [id number] Signed OPERATIVE FINDINGS: 1. On cystoscopy, there was no evidence of any suspicious masses, lesions, or stones. Bilateral ureteral orifices are in their normal anatomic location. 2. The patient's bladder was willing to hold a total volume of approximately 450 mL before her bladder began to force urine back out as it was being filled. DESCRIPTION OF PROCEDURE: After informed consent was obtained, the patient was taken back to the operating room. [facility] the operative room table where MAC anesthesia was induced. She was placed in a dorsal lithotomy position and the genitalia prepped and draped in standard sterile fashion. Using a 30-degree lens on a 17-[place] introducer, rigid cystoscope was inserted per urethra into her bladder under direct visualization. Panendoscopic views of the bladder were then obtained. Please see the findings. I then began the hydrodistention and filled the patient's bladder up to the point where I could appreciate the detrusor fibers in the bladder. There was no significant bleeding when the patient's bladder was filled to maximum capacity. The patient's bladder remained filled for a total of 9 minutes. The patient's bladder was then emptied and the amount filled in the bladder was measured using a graduated cylinder. The cystoscope was then removed and the procedure was terminated. The patient tolerated the procedure well without any complication. She will now be taken to the postanesthesia care unit in stable condition. DISPOSITION: Ms. Peguero will be discharged to home in stable condition later today when she awakes from anesthesia. She will be given a total of 10 tablets of ketorolac 10 mg as needed for postoperative pain. She will be scheduled to return to my clinic in approximately six weeks to undergo her first postoperative evaluation. MD ARMANDO Flores/TETE /[id number] Electronically Signed By: ANYA CHAMBERS MD 05/10/17 1710 PATIENT NAME: OLEGARIO PEGUERO OPERATIVE REPORT DATE OF : 62 PHYSICIAN: ANYA CHAMBERS MD REPORT #: [id number] REPORT IS CONFIDENTIAL AND NOT TO BE RELEASED WITHOUT AUTHORIZATION [address] [place], [place] [address] Signed Electronically Signed By: ANYA CHAMBERS MD 05/10/17 1710 PATIENT NAME: OLEGARIO PEGUERO OPERATIVE REPORT DATE OF : 62 PHYSICIAN: ANYA CHAMBERS MD REPORT #: [id number] REPORT IS CONFIDENTIAL AND NOT TO BE RELEASED WITHOUT AUTHORIZATION
== END 2017-05-10 09:55 | disposition home or self-care (01) ==
LOC: OPS 05:45 → DS 05:45 → OPS 06:45 → DS 06:45 → OPS 08:15 → DS 08:15 → OPS 09:55
PROVIDERS: Urology
PROC: 0T7B8ZZ Dilation of Bladder, Via Natural or Artificial Opening Endoscopic (ICD-10-PCS; principal; 2017-05-10 06:45)
DX: N30.10 Interstitial cystitis (chronic) without hematuria (principal); K21.9 Gastro-esophageal reflux disease without esophagitis; M79.7 Fibromyalgia; F32.9 Major depressive disorder, single episode, unspecified; K76.0 Fatty (change of) liver, not elsewhere classified; E78.00 Pure hypercholesterolemia, unspecified; Z90.49 Acquired absence of other specified parts of digestive tract; Z90.89 Acquired absence of other organs; Z98.51 Tubal ligation status; Z98.890 Other specified postprocedural states; Z88.0 Allergy status to penicillin; Z88.1 Allergy status to other antibiotic agents; Z88.2 Allergy status to sulfonamides; Z88.5 Allergy status to narcotic agent; Z88.8 Allergy status to other drugs, medicaments and biological substances; Z79.899 Other long term (current) drug therapy
CPT/HCPCS: 00910; J1956; J2405; J2704; J7120

== ENCOUNTER 2017-07-07 14:05 | Emergency (ER) | payer MEDICARE, OTHER ==
[~2017-07-07] VITALS: Ht 154.9 cm; Wt 59.0 kg
--- NOTE | 2017-07-07 19:18 | EKG ---
[facility] [address] [facility] [place] [address] Signed Normal sinus rhythm Normal ECG When compared with ECG of 28-APR-2017 09:55, T wave inversion now evident in Inferior leads Confirmed by KAREN BOWMAN MD ([id number]) on 07/07/2017 7:18:07 PM Electronically Signed By: KAREN BOWMAN MD 07/07/17 1918 PATIENT NAME: MARSHA SARAVIAAna Laura [place] Electrocardiogram DATE OF : 62 PHYSICIAN: KAREN BOWMAN MD REPORT #: [id number] REPORT IS CONFIDENTIAL AND NOT TO BE RELEASED WITHOUT AUTHORIZATION
== END 2017-07-07 15:39 | disposition home or self-care (01) ==
LOC: ED 14:05
DX: R07.2 Precordial pain (principal); I25.2 Old myocardial infarction; Z86.73 Personal history of transient ischemic attack (TIA), and cerebral infarction without residual deficits; Z98.51 Tubal ligation status; Z90.49 Acquired absence of other specified parts of digestive tract; Z90.89 Acquired absence of other organs; Z90.721 Acquired absence of ovaries, unilateral; Z88.5 Allergy status to narcotic agent; Z88.0 Allergy status to penicillin; Z88.8 Allergy status to other drugs, medicaments and biological substances; Z88.1 Allergy status to other antibiotic agents; Z91.040 Latex allergy status
CPT/HCPCS: 71010; 80048; 84484; 85025; 93005; 93010; 96374; 99283; J2405

== ENCOUNTER 2017-07-18 16:04 | Emergency (ER) | payer MEDICARE, OTHER ==
[~2017-07-18] VITALS: Ht 154.9 cm; Wt 59.0 kg
--- NOTE | 2017-07-19 23:48 | EKG ---
[facility] [address] [facility] [place], [place] [address] Signed Normal sinus rhythm Normal ECG When compared with ECG of 07-JUL-2017 14:18, No significant change was found Confirmed by KAREN BOWMAN MD ([id number]) on 07/19/2017 11:48:12 PM Electronically Signed By: KAREN BOWMAN MD 07/19/17 2348 PATIENT NAME: OLEGARIO SARAVIA MIGEL Electrocardiogram DATE OF : 62 PHYSICIAN: KAREN BOWMAN MD REPORT #: [id number] REPORT IS CONFIDENTIAL AND NOT TO BE RELEASED WITHOUT AUTHORIZATION
== END 2017-07-18 17:18 | disposition home or self-care (01) ==
LOC: ED 16:04
DX: R07.89 Other chest pain (principal); M79.7 Fibromyalgia; R06.02 Shortness of breath; G43.909 Migraine, unspecified, not intractable, without status migrainosus; Z86.73 Personal history of transient ischemic attack (TIA), and cerebral infarction without residual deficits; Z98.51 Tubal ligation status; Z90.49 Acquired absence of other specified parts of digestive tract; Z90.722 Acquired absence of ovaries, bilateral; Z88.5 Allergy status to narcotic agent; Z88.0 Allergy status to penicillin; Z88.8 Allergy status to other drugs, medicaments and biological substances; Z88.6 Allergy status to analgesic agent; Z79.899 Other long term (current) drug therapy
CPT/HCPCS: 71046; 80053; 84484; 85025; 93005; 93010; 99284

== ENCOUNTER 2017-11-24 15:06 | Emergency (ER) | payer MEDICARE, MEDICAID ==
[~2017-11-24] VITALS: Ht 157.5 cm; Wt 64.4 kg
[2017-11-24] MEDS ORDERED: CYCLOBENZAPRINE10 MG PO (16:11)
[2017-11-24] MEDS ORDERED: IBU600 MG PO (16:11)
== END 2017-11-24 16:25 | disposition home or self-care (01) ==
LOC: ED 15:06
DX: S30.1XXA Contusion of abdominal wall, initial encounter (principal); M79.7 Fibromyalgia; Y04.8XXA Assault by other bodily force, initial encounter; Z79.899 Other long term (current) drug therapy; Z88.5 Allergy status to narcotic agent; Z88.0 Allergy status to penicillin; Z88.1 Allergy status to other antibiotic agents; Z88.8 Allergy status to other drugs, medicaments and biological substances; Z91.040 Latex allergy status
CPT/HCPCS: 99283

== ENCOUNTER 2017-12-27 17:04 | Emergency (ER) | payer MEDICARE, MEDICAID ==
[~2017-12-27] VITALS: Ht 157.5 cm; Wt 64.4 kg
[~2017-12-27 17:04] MED LIST changes: +CYCLOBENZAPRINE10 MG PO; +IBU600 MG PO
[2017-12-27] MEDS ORDERED: MECLIZINE HCL12.5 MG PO (19:47)
--- NOTE | 2017-12-28 20:59 | EKG ---
[facility] [address] [facility] [place], [place] [address] Signed Sinus bradycardia Otherwise normal ECG When compared with ECG of 18-JUL-2017 16:12, No significant change was found Confirmed by KAREN BOWMAN MD ([id number]) on 12/28/2017 8:59:32 PM Electronically Signed By: KAREN BOWMAN MD 12/28/172058 PATIENT NAME: OLEGARIO SARAVIA MIGEL Electrocardiogram DATE OF : 62 PHYSICIAN: KAREN BOWMAN MD REPORT #: [id number] REPORT IS CONFIDENTIAL AND NOT TO BE RELEASED WITHOUT AUTHORIZATION
== END 2017-12-27 19:59 | disposition home or self-care (01) ==
LOC: ED 17:04
DX: R42 Dizziness and giddiness (principal); Z88.5 Allergy status to narcotic agent; Z88.0 Allergy status to penicillin; Z88.8 Allergy status to other drugs, medicaments and biological substances; Z88.1 Allergy status to other antibiotic agents; Z91.040 Latex allergy status; Z79.899 Other long term (current) drug therapy
CPT/HCPCS: 70450; 93005; 93010; 99284